=== PATIENT | male | born 1970 | race African-American/Black ===

== ENCOUNTER 2024-06-19 07:26 | Day surgery (SDC) | payer MEDICAID ==
[~2024-06-19] VITALS: Ht 188 cm; Wt 94.5 kg
[~2024-06-19 07:26] MED LIST: ASPI-1444 PO; ATOR20TA65 PO; CHOL200059 PO; LISI10TA24 PO; SODIUM CHLORIDE 0.9% 1,000 ML ONE
[2024-06-19] MEDS ORDERED: SODIUM CHLORIDE 0.9% 1,000 ML IV ONE (08:00)
[2024-06-19] MEDS ORDERED: FentaNYL CITRATE PF 100 MCG/2 ML VIAL ONE (08:14)
[2024-06-19] MEDS ORDERED: MIDAZOLAM HCL 5 MG/ML VIAL ONE ×2 (08:15→12:24)
[2024-06-19] MEDS: MIDAZOLAM HCL 5 MG/ML VIAL IVP ONE ×2 (09:29→09:31)
[2024-06-19] MEDS: FentaNYL CITRATE PF 100 MCG/2 ML VIAL IVP ONE ×2 (09:29→09:31)
== END 2024-06-19 11:25 | disposition home or self-care (01) ==
LOC: SURGERY 07:26
PROVIDERS: ATTEND Internal Medicine
DX: K92.1 Melena (principal); D12.3 Benign neoplasm of transverse colon; K62.1 Rectal polyp; K57.30 Diverticulosis of large intestine without perforation or abscess without bleeding; K64.8 Other hemorrhoids; I10 Essential (primary) hypertension; E78.00 Pure hypercholesterolemia, unspecified; J44.9 Chronic obstructive pulmonary disease, unspecified; G47.00 Insomnia, unspecified; M19.90 Unspecified osteoarthritis, unspecified site; F17.210 Nicotine dependence, cigarettes, uncomplicated; Z79.01 Long term (current) use of anticoagulants; Z79.82 Long term (current) use of aspirin; Z79.899 Other long term (current) drug therapy; Z98.890 Other specified postprocedural states; Z82.49 Family history of ischemic heart disease and other diseases of the circulatory system; Z83.3 Family history of diabetes mellitus
CPT/HCPCS: 45385; 45380; 88305; J3010; J2250; J7030